=== PATIENT | female | born 1985 | race Caucasian/White ===

== ENCOUNTER 2020-08-15 17:09 | Outpatient (CLI) | payer BC | END 2020-08-15 17:10 | disposition home or self-care (01) | LOC: COV 17:09 | PROVIDERS: ATTEND Family Medicine | DX: J02.9 Acute pharyngitis, unspecified (principal); R09.81 Nasal congestion; Z20.828 Contact with and (suspected) exposure to other viral communicable diseases ==

== ENCOUNTER 2020-09-19 21:14 | Outpatient (CLI) | payer BC | END 2020-09-19 21:15 | disposition home or self-care (01) | LOC: COV 21:14 | PROVIDERS: ATTEND Family Medicine | DX: R05 Cough (principal); R09.81 Nasal congestion; J34.89 Other specified disorders of nose and nasal sinuses; Z20.828 Contact with and (suspected) exposure to other viral communicable diseases ==